=== PATIENT | female | born 1970 | race Caucasian/White ===

== ENCOUNTER → 2020-08-13 10:59 | Outpatient (BNVA) | payer OTHER, SELFPAY | PROVIDERS: Family Provider Family Medicine; PCP Family Medicine; Visit Provider Registered Nurse | DX: E07.9 Disorder of thyroid, unspecified (principal) | CPT/HCPCS: 84443 ==

== ENCOUNTER → 2020-11-05 09:43 | Outpatient (BNVA) | payer OTHER, SELFPAY | PROVIDERS: Family Provider Family Medicine; PCP Family Medicine; Visit Provider Nurse Practitioner Family | DX: E03.9 Hypothyroidism, unspecified (principal) | CPT/HCPCS: 84443 ==

== ENCOUNTER → 2021-08-17 13:29 | Outpatient (BNVA) | payer OTHER, SELFPAY | PROVIDERS: Family Provider Family Medicine; PCP Registered Nurse; Visit Provider Registered Nurse | DX: E03.9 Hypothyroidism, unspecified (principal) | CPT/HCPCS: 84443 ==

== ENCOUNTER → 2022-08-09 13:41 | Outpatient (BNVA) | payer OTHER, SELFPAY | PROVIDERS: Family Provider Family Medicine; PCP Registered Nurse; Visit Provider Registered Nurse | DX: E03.9 Hypothyroidism, unspecified (principal) | CPT/HCPCS: 84443 ==

== ENCOUNTER → 2023-08-02 13:59 | Outpatient (BNVA) | payer OTHER, SELFPAY | PROVIDERS: Family Provider Family Medicine; PCP Registered Nurse; Visit Provider Registered Nurse | DX: E03.9 Hypothyroidism, unspecified (principal) | CPT/HCPCS: 84443 ==

== ENCOUNTER → 2024-08-06 09:31 | Outpatient (BNVA) | payer OTHER, SELFPAY | PROVIDERS: Family Provider Family Medicine; PCP Registered Nurse; Visit Provider Registered Nurse | DX: E03.9 Hypothyroidism, unspecified (principal) | CPT/HCPCS: 84443 ==

== ENCOUNTER → 2024-08-15 11:00 | Outpatient (BNVA) | payer OTHER, SELFPAY | PROVIDERS: Family Provider Family Medicine; PCP Registered Nurse; Visit Provider Specialist | DX: M17.11 Unilateral primary osteoarthritis, right knee (principal); M25.761 Osteophyte, right knee | CPT/HCPCS: 73560; 73565 ==

== ENCOUNTER 2024-09-04 15:32 | Outpatient (CLI) | payer OTHER, SELFPAY ==
--- NOTE | 2024-09-04 16:00 | MR_ITS ---
WS: [id number] MRI RIGHT KNEE HISTORY: right knee pain COMPARISON: Radiograph 08/15/2024 Anterior cruciate ligament: ACL is very poorly visualized. The ACL is markedly bulky and of increased T2 signal throughout. This is most likely due to diffuse severe mucoid degeneration. The orientation best identified on the coronal views appears appropriate. On the sagittal proton density sequence th e ACL is very difficult to identified. Posterior cruciate ligament: Intact. Medial collateral ligament: Mildly displaced from the joint line by partially extruded meniscus and o steophytes. No MCL tear. Posterior lateral corner structures: Intact. Medial menisci: No definite tear is identified. There is very slight increased T2 signal in the body of the meniscus. Lateral meniscus: Intact. Normal signal, size and shape. Extensor mechanism: Mild patellar tendinopathy involving the distal tendon. Visualized quadriceps ten don is normal. Fluid and soft tissue: Small suprapatellar joint effusion. No Jolly's cyst. Osseous and articular structures: Patellofemoral compartment: Partial lateral subluxation of the patella. Moderate narrowing of the pat ellofemoral joint space with diffuse chondromalacia. No marrow edema. There is an additional osteophy te from the distal anterior femoral condyle extending into the patellofemoral joint space. Medial compartment: Moderate narrowing with small marginal osteophytes. Complete loss of cartilage al william the weightbearing surface of the femoral condyle. Moderate loss of cartilage along the tibial viri teau also. There is subchondral cyst at the base of the tibial spines. Lateral compartment: Moderate narrowing with diffuse irregularity along the weightbearing surface of the femoral condyle and tibial plateau cartilage. There is no marrow edema. Mild osteophytic ridging around the femoral condyles. MR/MR knee RT wo con* [id number] IMPRESSION: 1. Moderate tricompartment osteoarthritis. Significant loss of cartilage with narrowing of the joint spaces and osteophytes. 2. Mild lateral subluxation of the patella with greater narrowing of the later al patellofemoral joint space. 3. Poorly visualized ACL. This is most likely due to extensive mucoid degenera tion. On the coronal images the ACL can be followed and does appear to be intac t. 4. Mild patellar tendinopathy. 5. Small suprapatellar joint effusion. 6. No fracture or marrow edema. 7. No meniscal tear.
== END 2024-09-04 15:33 | disposition home or self-care (01) ==
PROVIDERS: Family Provider Family Medicine; PCP Registered Nurse; Visit Provider Specialist
DX: S83.001A Unspecified subluxation of right patella, initial encounter (principal); M17.11 Unilateral primary osteoarthritis, right knee; M25.761 Osteophyte, right knee; X58.XXXA Exposure to other specified factors, initial encounter
CPT/HCPCS: 73721

== ENCOUNTER → 2025-05-06 12:17 | Outpatient (BNVA) | payer OTHER, SELFPAY | PROVIDERS: Family Provider Family Medicine; PCP Registered Nurse; Visit Provider Emergency Medicine | DX: M77.51 Other enthesopathy of right foot and ankle (principal) | CPT/HCPCS: 73630 ==

== ENCOUNTER 2025-05-22 09:52 | Outpatient (CLI) | payer OTHER, SELFPAY ==
--- NOTE | 2025-05-22 10:00 | CTR_ITS ---
PROCEDURE INFORMATION: Exam: CT Right Lower Extremity Without Contrast, Foot Exam date and time: 05/22/2025 10:21 AM Age: 54 years old Clinical indication: Stress FX, ? extra bone growth on lateral side of right foot, pain x 1 month; Additional info: Stress fracture TECHNIQUE: Imaging protocol: CT of the right lower extremity without contrast was performed. Exam focused on the foot. Radiation optimization: All CT scans at this facility use at least one of these dose optimization techniques: automated exposure control; mA and/or kV adjustment per patient size (includes targeted exams where dose is matched to clinical indication); or iterative reconstruction. COMPARISON: CR XR foot RT min 3V* [id number] 05/06/2025 12:19 PM RADIATION DOSE METRICS: Total DLP (mGy-cm): 149.57 FINDINGS: Bones/joints: [id number] sized plantar and dorsal calcaneal enthesophytes. Redemonstrated prominent basilar 5th metatarsal enthesophyte. Within the limits of CT evaluation, the distal Achilles tendon demonstrates apparent and abnormal intrasubstance linear hypodensity with equivocal tendon thickening, suggestive of possible Achilles tendinosis. If further clinical concern consider MRI for further evaluation. No acute fracture or dislocation. No findings to suggest stress/insufficiency fracture, within the limits of CT evaluation. Soft tissues: See Bones/joints finding. CT/CT foot RT wo con* [id number] IMPRESSION: No acute findings. See above
== END 2025-05-22 09:53 | disposition home or self-care (01) ==
LOC: RAD 09:56
PROVIDERS: Family Provider Family Medicine; PCP Registered Nurse; Visit Provider Podiatrist Foot & Ankle Surgery
DX: Z03.89 Encounter for observation for other suspected diseases and conditions ruled out (principal); M77.51 Other enthesopathy of right foot and ankle
CPT/HCPCS: 73700

== ENCOUNTER 2025-06-10 06:52 | Day surgery (SDC) | payer OTHER, SELFPAY ==
[2025-06-10] VITALS (7 sets, daily range): BP systolic 112–163; BP diastolic 71–113; PULSE 65–78; RESP 16–18; TEMP 36.2–36.6; O2SAT 90–97; BMI 34.1
--- NOTE | 2025-06-10 | XR_ITS ---
WS: [id number] Right foot, C-arm fluoroscopy images, 06/10/2025 Clinical Data: AIDEN PICS Comparison: Right foot, 05/06/2025 Findings: Dr. La removed an exostosis at the base of the right fifth metatarsal XR/XR foot RT min 3V* [id number] Impression: Removal of exostosis of base of right fifth metatarsal.
--- NOTE | 2025-06-10 08:13 | P.ANESASSM_ITS ---
Pre-Anesthetic Assessment Height/Weight: Height 5 ft 7 in Weight 218 lb Temp Pulse Resp BP Pulse Ox O2 Del Method 97.8 F 74 18 163/113 97 Room Air 06/10/25 07:14 06/10/25 07:14 06/10/25 07:14 06/10/25 07:14 06/10/25 07:14 06/10/25 07:20 Preop Diagnosis: Exostosis right foot Operation Date: 06/10/25 08:35 Proposed Procedures p RIGHT FOOT Fifth Metatarsal Exostectomy(Right) - Murray La DPM Was Beta Zulema taken within 24 hours: N/A Was Clonidine taken within 24 hours: N/A Last intake: Intake Last Liquid Date 06/09/25 Last Liquid Time 20:45 Last Solid Date 06/09/25 Last Solid Time 17:30 Social No alcohol and No tobacco Exam alert, oriented x 3, clear to auscultation bilaterally and regular rate & rhythm Airway Submandibular: within normal limits Cervical ROM: within normal limits Mallampati: Class III Dentition: full Anesthetic Plan ASA status: 2 Anesthesia: MAC Other: History of PONV and delayed emergence. Experience this with hysterectomy and knee surgeries NPO since yesterday evening Denies any cardiac or pulmonary issues Hypothyroidism on Synthroid METs greater than 4 Plan for MAC anesthesia with local via surgeon Medications/Allergies Home Medications ?Medication ?Instructions ?Recorded ?Confirmed ?Last Taken ?Type levothyroxine 137 mcg capsule 137 mcg PO DAILY #30 cap s 08/07/24 06/06/25 06/09/25 Rx cam walker #1 05/06/25 05/23/25 Unkn own Rx crutch #2 05/06/25 05/23/25 Unkn own Rx knee scooter #1 05/13/25 05/23/25 Unkn own Rx Allergies Allergy/AdvReac Type Severity Reaction Status Date / Time Penicillins Allergy rash Verified 06/10/25 07:12 Current Medications Generic Name Dose Route Start Last Admin Trade Name Freq PRN Reason Stop Dose Admin Sodium Chloride 1,000 mls @ 30 mls/hr 06/10/25 07:00 06/10/25 07:30 Sodium Chloride 0.9% IV 06/11/25 06:59 30 mls/hr .Q24H RUPESH Administration PFSH Anesthesia Medical History Contact allergic reaction No pertinent past medical history Patient denies history of PE/DVT/clotting disorders, asthma, lung, liver heart, kidney disease, hypertension or diabetes. Chronic migraine Reports having migraines on and off since she was 28. Denies any auras. Managed by her primary care provider. Hypothyroidism (acquired) Diagnosed in 1994 and has been controlled with medication. Bilateral hearing loss Surgical History S/P cholecystectomy (~2015) laparoscopic S/P section x2 in 1997 and 1998 S/P myringotomy with insertion of tube as a child S/P arthroscopic knee surgery Bilateral S/P tonsillectomy and adenoidectomy Done as a child Family History Mother Thyroid disease Grandfather Heart disease maternal Grandmother Heart disease maternal Thyroid disease paternal Family/Other Breast cancer Paternal aunt, diagnosed at age 70 Other Stroke Denies family history of Cervical cancer Colon cancer Ovarian cancer DVT (deep venous thrombosis) Pulmonary embolism Uterine cancer Social History Smoking and tobacco/nicotine status: never used tobacco/nicotine Alcohol intake: never Substance/Drug Use: never Additional social history: - Drug Use: Denies Alcohol Use: Drinks an alcoholic beverage twice yearly on average Tobacco Use: Denies current or past tobacco use. 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
--- NOTE | 2025-06-10 08:19 | P.HPUD_ITS ---
Surgery/Procedure H&P Update DATE OF PROCEDURE: June 10, 2025 DATE H&P PERFORMED: 05/23/25 H&P UPDATE INFORMATION: I have reviewed H&P completed within last 30 days, I have examined patient prior to procedure, No changes to prior documentation, H&P is in [facility] EMR on date indicated and Risks and benefits of the procedure reviewed PREOP DIAGNOSIS: Exostosis right foot PLANNED PROCEDURE: Operation Date: 06/10/25 08:35 Proposed Procedures p RIGHT FOOT Fifth Metatarsal Exostectomy(Right) - Murray La DPM
[2025-06-10] MEDS: BUPivacaine 0.5% INJ 30 mL INJECTION (08:40)
--- NOTE | 2025-06-10 09:09 | P.OP_ITS ---
Operative Report Date of procedure: June 10, 2025 Surgeon: Murray La DPM Procedure: Date of procedure: 06/10/2025 Pre-op diagnosis: Right foot fifth metatarsal exostosis Post-op diagnosis: Same Post-op findings: Exostosis right foot fifth metatarsal. No peroneus brevis involvement Procedure done: Exostectomy right foot fifth metatarsal CPT 73320 Implants: None Specimens removed: None Surgeon: Dr. Murray La DPM Scale Model Maker: Jake Estimated blood loss: 2 cc Complications: None Patient is a 54-year-old female that has a history of right foot fifth metatarsal pain. The patient has had the aforementioned chief complaint for some time. Conservative treatment measures have been attempted and the patient has opted for surgical intervention at this time. A lengthy discussion regarding the procedure, including risks and complications has been had with the patient and is noted in the recent clinic note. Written and verbal consent have been obtained. All patient questions have been answered to the patient?s satisfaction . No written or verbal guarantees have been given or implied. The patient has been NPO since midnight. The history has been reviewed and the history and physical is current. The signed consent was confirmed and placed in the patient chart. Patient imaging has been reviewed and is consistent with the diagnosis. Under mild sedation, the patient was brought into the operating room and placed on the table in the supine position. IV antibiotics were given by the anesthesia team as preoperative surgical prophylaxis. MAC sedation was then performed by the anesthesiateam. A pneumatic tourniquet was then placed about the right ankle. The operative extremity was then prepped and draped in the usual fashion. The extremity was then elevated and exsanguinated before the tourniquet was inflated to 250 mmHg. a local field block was performed using 0.5% Marcaine plain. After inflation, the following procedure was then performed. Attention was directed to the lateral aspect of the right ankle where a 3.5 cm incision was made using a #15 blade. Dissection was carried down through subcutaneous the superficial fascia to the level of the periosteum of the fifth metatarsal. This was incised to expose the base of the fifth metatarsal. Exostosis was noted. This was separate from tendinous attachment of peroneus brevis tendon. Peroneus brevis tendon was retracted out of the operative field and a rongeur was used to remove exostosis. Reciprocating power rasp was then used to smooth down the site of exostectomy. No further bony prominence was noted. Incision was irrigated with copious months of sterile saline before attention was directed to closure. Subcuticular closure was performed using 4-0 Vicryl and skin closure was performed using 4-0 nylon. Tourniquet was let down and good hyperemic response was noted to all digits of the right foot. Incisions were dressed with Xeroform, 4 x 4 gauze, Kerlix, Sidney. Patient was placed in a cam boot. The patient tolerated the procedure and anesthesia well and without complication. The patient was transported from the operating room to the recovery room with vital signs stable and vascular status intact to all digits of the right foot. The patient was given both written and verbal instructions to remain weightbearing as tolerated to the operative extremity, to keep dressings/splint clean, dry and intact and to take pain medication as directed. The patient will follow-up in the outpatient setting at their scheduled appointment. The patient was discharged with my personal number and was instructed to call if any questions or issues should arise. They were discharged home once anesthesia criteria was met.
--- NOTE | 2025-06-10 10:30 | ANE.PACU2 ---
Inpatient post-anesthesia follow up: Airway intact: Yes Vital signs: Temperature 97.3 F Pulse Rate 65 Respiratory Rate 18 Blood Pressure 128/80 Pulse Oximetry 95 Oxygen Delivery Me thod Room Air Oxygen Flow Rate Fraction of Inspir ed Oxygen Hydration adequate: Yes Nausea and vomiting: No Pain level: 1 Mental status: Baseline
== END 2025-06-10 10:35 | disposition home or self-care (01) ==
PROVIDERS: PCP Registered Nurse; Visit Provider Podiatrist Foot & Ankle Surgery
PROC: (CPT 28288; principal; 2025-06-10 08:25)
DX: M89.8X7 Other specified disorders of bone, ankle and foot (principal); E03.9 Hypothyroidism, unspecified
CPT/HCPCS: 28122; 73630; 76000; J2250; J2704; J3010; J3490; J7030; J9999

== ENCOUNTER → 2025-06-24 14:51 | Outpatient (BNVA) | payer OTHER, SELFPAY | PROVIDERS: PCP Registered Nurse; Visit Provider Podiatrist Foot & Ankle Surgery | DX: S92.351D Displaced fracture of fifth metatarsal bone, right foot, subsequent encounter for fracture with routine healing (principal); X58.XXXD Exposure to other specified factors, subsequent encounter | CPT/HCPCS: 73630 ==

== ENCOUNTER → 2025-08-15 11:18 | Outpatient (BNVA) | payer OTHER, SELFPAY | PROVIDERS: PCP Registered Nurse; Visit Provider Registered Nurse | DX: Z13.6 Encounter for screening for cardiovascular disorders (principal); E03.9 Hypothyroidism, unspecified | CPT/HCPCS: 80053; 80061; 83036; 84443; 85025 ==

== ENCOUNTER 2025-09-23 14:15 | Outpatient (CLI) | payer OTHER, SELFPAY ==
--- NOTE | 2025-09-23 14:17 | MM_ITS ---
WS: [id number] BILATERAL 3D TOMOSYNTHESIS DIGITAL SCREENING MAMMOGRAPHY WITH CAD CLINICAL INFORMATION: SCREENING HISTORY: Screening mammogram. No current complaints. COMPARISON: 2019 TECHNIQUE: Bilateral CC and MLO views. FINDINGS: The breasts are composed of heterogeneous fibroglandular density tissue, which can limit the detection of small underlying mass lesions. No suspicious mass, asymmetry, calcifications, or architectural distortion. No evidence of malignancy. Stable 11 mm nodule upper outer RIGHT breast previously demonstrated to represent a lymph node on ultrasound MM/MM scr tomosynthesis [id number] IMPRESSION: DENSITY: The breasts are heterogeneously dense, which may obscure small masses. BI-RADS: 2 - Benign FOLLOW UP: 1 Year Follow-up Recommend return to annual screening mammography.
== END 2025-09-23 14:16 | disposition home or self-care (01) ==
LOC: RAD 14:15
PROVIDERS: PCP Registered Nurse; Visit Provider Registered Nurse
DX: Z12.31 Encounter for screening mammogram for malignant neoplasm of breast (principal); R92.323 Mammographic fibroglandular density, bilateral breasts; N64.89 Other specified disorders of breast
CPT/HCPCS: 77063; 77067